=== PATIENT | male | born 1990 | race Hispanic/Latino ===

== ENCOUNTER 2025-02-12 14:23 | Emergency (ER) | payer OTHER ==
[~2025-02-12] VITALS: Ht 175.3 cm; Wt 72.6 kg
[2025-02-12] MEDS: acetaMINOPHEN 500 MG TABLET PO ONE (14:52)
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
[2025-02-12 15:40] VITALS: BP 140/80; PULSE 90; RESP 16; TEMP 98.1; O2SAT 98
--- NOTE | 2025-02-12 16:20 | HMCIMG ---
CHEST 1VW HISTORY: Chest pain COMPARISON: None FINDINGS: A frontal projection of the chest was obtained. Prominent interstitial markings are seen with possible superimposed infiltrates. The heart is normal in size. No evidence of aortic calcification is seen. IMPRESSION: 1. Prominent interstitial markings are seen with possible superimposed infiltrates.
== END 2025-02-12 15:49 ==
LOC: EDH 14:23 → EDBD 14:23 → EDH 15:49
DX: R52 Pain, unspecified (principal); Y04.0XXA Assault by unarmed brawl or fight, initial encounter; Y93.89 Activity, other specified; Y92.89 Other specified places as the place of occurrence of the external cause; Y99.8 Other external cause status
CPT/HCPCS: 71045; 99283